=== PATIENT | male | born 1970 | race Two or more races ===

== ENCOUNTER 2017-08-02 09:03 | Emergency (ER) | payer OTHER ==
[~2017-08-02] VITALS: Ht 167.6 cm; Wt 74.8 kg
--- NOTE | 2017-08-02 09:48 | Emergency Room Report ---
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 N Clinical Suspician of Infection? N Mental Status: 1 - Regular (Normal Baseline) Sepsis Risk:Low Sepsis Risk Have you (or family members/close friends) recently traveled outside the [place]? N If Yes, where/when: Have you had exposure to infectious disease within the past month? N TB? Other? 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 He complains of pain in his LEFT heel and ankle area and his lower back. He denies any injury to head, neck, chest or abdomen. ALLERGIES Coded Allergies: No Known Allergies (08/02/17) History Medical History General CAD? No Angina: No [place]: No Hypertension? No Hyperlipidemia? No CHF? No DVT? No PE? No COPD? No Asthma? No Anemia? No GERD? No Gastric ulcers? No GI Bleed? No Hernia? No Thyroid Problems? No Hypothyroidism? No CVA? No Seizures? No Diabetes? No Renal Insuffiency? No End Stage Renal Disease? No UTI? No Stones? No BPH? No GB Disease: No Nephritic Syndrome? No Asplenia? No Hepatitis? No Sickle Cell Disease? No Arthritis? No Migraines? No Cataracts? No Glaucoma? No MRSA? No HIV? No TB? No Anxiety? No Depression? No Cancer? No Site: N More? No Immunization Hx DT/Tetanus Unknown Surgical Hx Previous Surgery?Y KNEE Social History Smoking Hx Smoker: Never Smoker Tobacco: No Alcohol Alcohol: No Review of Systems All Other Systems Reviewed and Negative Cardiovascular denies syncope Musculoskeletal back pain, joint pain, denies neck pain Psychiatric/Neurological denies headache, denies numbness, denies weakness Physical Exam Vital Signs Vital Signs Date Time Temp Pulse Resp B/P Pulse O2 O2 Flow FiO2 Ox Delivery Rate 08/02 1111 97.8 54 18 130/68 98 08/02 1049 97.8 54 18 132/77 98 08/02 0918 97.8 54 18 131/70 98 General Appearance no apparent distress Neck normal inspection, non-tender, supple, full range of motion Respiratory Status No: respiratory distress, non tender chest. Cardiovascular regular rate/rhythm, normal peripheral pulses Gastrointestinal non tender Back vertebral tenderness (lumbar) Extremities tenderness of LEFT calcaneus without visible edema or ecchymosis. Skin intact. Neurovascular intact. Neurologic alert, psychiatric secretary II-XII nml as tested, no motor/sensory deficits Medical Decision Making LABS/Meds/Orders Pt receiving controlled substance in ED? No Results/Orders Orders Procedure Date/time Status DIET-NOTHING BY MOUTH 08/[address] SCAN REQ 08/02 0946 Complete HEEL (OSCALSIS)-LT 08/02 UNK Active XRAY/CT/US XRAY/CT/US XRAY ankle, foot, Calcaneus Comment X-rays interpreted by radiologist: Foot, ankle, calcaneus: No acute fracture or dislocation CT L-spine Comment CT scan interpreted by radiologist: Degenerative change, no fracture seen Departure Departure Disposition DC Home or Self Care(routine) Clinical Impression Primary Impression: Lumbar strain Qualifiers: Encounter type: initial encounter Qualified Code: S39.012A - Strain of muscle, fascia and tendon of lower back, initial encounter Secondary Impressions: Foot contusion Qualifiers: Encounter type: initial encounter Laterality: left Qualified Code: S90.32XA - Contusion of left foot, initial encounter Condition STABLE Referrals Ad Schreiber MD Patient Instructions DI for Contusion, DI for Low Back Pain Additional Instructions Off work until Saturday08/05/17. Rest, ice, elevation of foot for 2 days. Follow-up with orthopedics if not improved in 3 days. Prescriptions Current Visit Scripts Ibuprofen (Ibuprofen 800MG) 800 MG PO Q8HP PRN pain #15 TAB ED Critical Care Critical Care No at 1306
--- NOTE | 2017-08-02 09:48 | Emergency Room Report ---
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 N Clinical Suspician of Infection? N Mental Status: 1 - Regular (Normal Baseline) Sepsis Risk:Low Sepsis Risk Have you (or family members/close friends) recently traveled outside the [place]? N If Yes, where/when: Have you had exposure to infectious disease within the past month? N TB? Other? 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 He complains of pain in his LEFT heel and ankle area and his lower back. He denies any injury to head, neck, chest or abdomen. ALLERGIES Coded Allergies: No Known Allergies (08/02/17) History Medical History General CAD? No Angina: No [place]: No Hypertension? No Hyperlipidemia? No CHF? No DVT? No PE? No COPD? No Asthma? No Anemia? No GERD? No Gastric ulcers? No GI Bleed? No Hernia? No Thyroid Problems? No Hypothyroidism? No CVA? No Seizures? No Diabetes? No Renal Insuffiency? No End Stage Renal Disease? No UTI? No Stones? No BPH? No GB Disease: No Nephritic Syndrome? No Asplenia? No Hepatitis? No Sickle Cell Disease? No Arthritis? No Migraines? No Cataracts? No Glaucoma? No MRSA? No HIV? No TB? No Anxiety? No Depression? No Cancer? No Site: N More? No Immunization Hx DT/Tetanus Unknown Surgical Hx Previous Surgery?Y KNEE Social History Smoking Hx Smoker: Never Smoker Tobacco: No Alcohol Alcohol: No Review of Systems All Other Systems Reviewed and Negative Cardiovascular denies syncope Musculoskeletal back pain, joint pain, denies neck pain Psychiatric/Neurological denies headache, denies numbness, denies weakness Physical Exam Vital Signs Vital Signs Date Time Temp Pulse Resp B/P Pulse O2 O2 Flow FiO2 Ox Delivery Rate 08/02 1111 97.8 54 18 130/68 98 08/02 1049 97.8 54 18 132/77 98 08/02 0918 97.8 54 18 131/70 98 General Appearance no apparent distress Neck normal inspection, non-tender, supple, full range of motion Respiratory Status No: respiratory distress, non tender chest. Cardiovascular regular rate/rhythm, normal peripheral pulses Gastrointestinal non tender Back vertebral tenderness (lumbar) Extremities tenderness of LEFT calcaneus without visible edema or ecchymosis. Skin intact. Neurovascular intact. Neurologic alert, entry specialists II-XII nml as tested, no motor/sensory deficits Medical Decision Making LABS/Meds/Orders Pt receiving controlled substance in ED? No Results/Orders Orders Procedure Date/time Status DIET-NOTHING BY MOUTH 08/[address] SCAN REQ 08/02 0946 Complete HEEL (OSCALSIS)-LT 08/02 UNK Active XRAY/CT/US XRAY/CT/US XRAY ankle, foot, Calcaneus Comment X-rays interpreted by radiologist: Foot, ankle, calcaneus: No acute fracture or dislocation CT L-spine Comment CT scan interpreted by radiologist: Degenerative change, no fracture seen Departure Departure Disposition DC Home or Self Care(routine) Clinical Impression Primary Impression: Lumbar strain Qualifiers: Encounter type: initial encounter Qualified Code: S39.012A - Strain of muscle, fascia and tendon of lower back, initial encounter Secondary Impressions: Foot contusion Qualifiers: Encounter type: initial encounter Laterality: left Qualified Code: S90.32XA - Contusion of left foot, initial encounter Condition STABLE Referrals Ad Schreiber MD Patient Instructions DI for Contusion, DI for Low Back Pain Additional Instructions Off work until Saturday08/05/17. Rest, ice, elevation of foot for 2 days. Follow-up with orthopedics if not improved in 3 days. Prescriptions Current Visit Scripts Ibuprofen (Ibuprofen 800MG) 800 MG PO Q8HP PRN pain #15 TAB ED Critical Care Critical Care No at 1306
--- NOTE | 2017-08-02 10:36 | RADIOLOGY REPORT PS360 ---
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 Sagittal coronal reformats were evaluated as well. FINDINGS: Curvature and alignment appear normal. All lumbar vertebrae appear intact. There is minor anterior ossific spurring at the L2-3 and L3-4 levels. There are minor facet arthritic changes at L3-4 and L4-5 levels. The transverse processes appear intact. The SI joints are normal. IMPRESSION: Minor degenerative changes at L to 3 and L3-4, no acute pathology noted
[2017-08-02 11:11] VITALS: BP 130/68
--- NOTE | 2017-08-02 11:23 | RADIOLOGY REPORT PS360 ---
FOOT-LT-3 VIEWS COMPARISON: None HISTORY: Left foot pain after a fall TECHNIQUE: AP lateral and oblique views FINDINGS: The tarsal bones metatarsals and phalanges appear intact with no evidence of recent or old fracture. There does appear to swelling of the soft tissues of the volar aspect of the foot and about the calcaneus. There are no foreign bodies. IMPRESSION: Soft tissue swelling possibly secondary to contusion from a fall., no definite fracture seen.
--- NOTE | 2017-08-02 12:11 | RADIOLOGY REPORT PS360 ---
ANKLE-LT-3 VIEWS COMPARISON: None HISTORY: Left ankle pain after a fall TECHNIQUE: AP lateral and oblique views FINDINGS: The medial and lateral malleolus appear intact with no fracture seen. There is very minimal spurring of the tip of the medial malleolus or the finding could be due to old tiny avulsion chip fracture. Ankle mortise appears normal. There is a tiny spur of the calcaneus at insertion of the plantar tendon. There is mild diffuse soft tissue swelling about the calcaneus probably contusion from the fall. IMPRESSION: Left ankle negative for acute fracture
--- OUTSIDE RECORDS SUMMARY | 2017-08-09 02:31 | External Medical Summary Rpt | CCD ---
Demographics Preferred Language Persian Marital Status Unknown Hindu Affiliation Unknown Race Unknown Ethnic Group Unknown Author Author , JAYME DELACRUZ Address Unknown Phone Immunization No patient found.
--- OUTSIDE RECORDS SUMMARY | 2017-08-09 02:31 | External Medical Summary Rpt | CCD ---
Author Author [employer] Organization [employer] Address Unknown Phone Unavailable Purpose Continuity of Care Document - through 2016
--- OUTSIDE RECORDS SUMMARY | 2017-08-09 02:31 | External Medical Summary Rpt | CCD ---
Demographics Preferred Language Yi Marital Status Unknown Adventism Affiliation Unknown Race Unknown Ethnic Group Unknown Author Author , JAYME DELACRUZ Address Unknown Phone Immunization No patient found.
--- OUTSIDE RECORDS SUMMARY | 2017-08-09 02:31 | External Medical Summary Rpt | CCD ---
Author Author , JAYME DELACRUZ Address Unknown Phone [email or web address] Purpose Continuity of Care Document - through 2016
--- OUTSIDE RECORDS SUMMARY | 2017-08-09 02:31 | External Medical Summary Rpt | CCD ---
Author Author , JAYME DELACRUZ Address Unknown Phone [email or web address] Purpose Continuity of Care Document - through 2016
== END 2017-08-02 11:12 | disposition home or self-care (01) ==
LOC: ER 09:03
DX: S39.012A Strain of muscle, fascia and tendon of lower back, initial encounter (principal); S90.32XA Contusion of left foot, initial encounter; W13.8XXA Fall from, out of or through other building or structure, initial encounter; Y93.H2 Activity, gardening and landscaping; Y92.79 Other farm location as the place of occurrence of the external cause; Y99.0 Civilian activity done for income or pay